=== PATIENT | female | born 1940 | race Caucasian/White ===

== ENCOUNTER 2021-02-15 16:21 | Inpatient (IN) | payer MEDICARE ==
[2021-02-15 16:59] LABS: #Basophils 0.1 thou/uL (0.0-0.2); #Eosinphils 0.1 thou/uL (0.0-0.7); #Lymphocytes 1.7 thou/uL (1.20-3.40); #Monocytes 0.6 thou/uL (0.11-0.59); #Neutrophils 7.9 thou/uL (1.40-6.50); %Basophils 0.8 % (0.0-1.0); %Eosinophils 1.1 % (0.0-10.0); %Lymphocytes 16.3 % (21.0-51.0); %Monocytes 5.8 % (0.0-10.0); %Neutrophils 76.1 % (42.0-75.0); Hemoglobin 14.4 g/dL (12.0-16.0); Mean Corpuscular HGB CONC 31.3 g/dL (32.0-36.0); Mean Corpuscular Hemoglobin 27.1 pg (27.0-31.0); Mean Corpuscular Volume 86.6 fL (78.0-98.0); Mean Platelet Volume 8.4 fL (7.4-10.4); Platelet Count 302 thou/uL (130-400); RBC Distribution Width 13.4 % (11.5-14.5); Red Blood Cell (RBC) Count 5.32 mill/uL (4.20-5.40); White Blood Cell (WBC) Count 10.4 thou/uL (4.8-10.8)
[2021-02-15 17:18] LABS: ALT (SGPT) 11 U/L (8-55); AST (SGOT) 14 U/L (5-34); Albumin 3.9 g/dL (3.4-4.8); Alkaline Phosphatase 70 U/L (40-110); Anion Gap 12 mmol/L (10-20); BUN (Urea Nitrogen) 19 mg/dL (9.8-20.1); Bilirubin, Total 0.4 mg/dL (0.2-1.2); Calc. Creatinine Clearance 0 mL/min (70-130); Calcium 9.3 mg/dL (7.8-10.44); Carbon Dioxide 24 mmol/L (23-31); Chloride 102 mmol/L (98-107); Globulin 3.6 g/dL (2.4-3.5); Glucose 146 mg/dL (83-110); Lipase 30 U/L (8-78); Potassium 4.4 mmol/L (3.5-5.1); Protein, Total 7.5 g/dL (5.8-8.1); Sodium 134 mmol/L (136-145)
[2021-02-15 17:40] LABS: CKMB 2.2 ng/mL (0-6.6)
[2021-02-15] MEDS ORDERED: Ondansetron PF 4 MG/2 ML Vial ONE (19:42)
[2021-02-15] MEDS ORDERED: Enoxaparin Sodium 100 MG/ML SYRINGE ONE (19:42)
[2021-02-15] MEDS ORDERED: Acetaminophen 500 MG TAB ONE (19:43)
[2021-02-15] MEDS ORDERED: Acetaminophen 325 MG TAB PO PRN (19:49)
[2021-02-15] MEDS ORDERED: Ondansetron PF 4 MG/2 ML Vial IVP PRN (19:49)
[2021-02-15] MEDS ORDERED: Nitroglycerin 0.4 MG TAB (25 Tab Bottle) SL PRN (19:49)
[2021-02-15] MEDS ORDERED: Ondansetron ODT 4 MG TAB PO PRN (19:49)
[2021-02-15] MEDS ORDERED: Dextrose 50% Abboject 50 ML SYRINGE SLOW IVP PRN (20:02)
[2021-02-15] MEDS ORDERED: Dextrose 5% in Water 1,000 ML IV PRN (20:02)
[2021-02-15] MEDS ORDERED: HumaLOG 300 UNITS/3 ML VIAL SC PRN ×2 (20:02)
[2021-02-15 20:22] LABS: Troponin I 0.569 ng/mL (< 0.028)
[2021-02-15 21:19] LABS: SARS-CoV-2 NAA Rapid Test Not Detected (NotDetected)
[2021-02-15 22:43] LABS: Bilirubin Negative (Negative); Blood, Urine Negative (Negative); Clarity Clear (Clear); Glucose, Urine (Dipstick) Greater than 1000 mg/dL (Negative); Ketone, Urine Negative (Negative); Leukocyte Negative Leu/uL (Negative); Nitrite Negative (Negative); Protein, Urine (Dipstick) Negative (Neg-Trace); Specific Gravity, Urine 1.035 (1.002-1.036); Urobilinogen Normal mg/dL (Less than 2); pH, Urine 5.5 (5.0-9.0)
[2021-02-16 01:15] LABS: Troponin I 0.717 ng/mL (< 0.028)
[2021-02-16 05:22] LABS: #Basophils 0.1 thou/uL (0.0-0.2); #Eosinphils 0.1 thou/uL (0.0-0.7); #Lymphocytes 2.8 thou/uL (1.20-3.40); #Monocytes 0.9 thou/uL (0.11-0.59); #Neutrophils 9.6 thou/uL (1.40-6.50); %Basophils 0.6 % (0.0-1.0); %Eosinophils 0.8 % (0.0-10.0); %Lymphocytes 20.5 % (21.0-51.0); %Monocytes 6.7 % (0.0-10.0); %Neutrophils 71.5 % (42.0-75.0); Hemoglobin 14.4 g/dL (12.0-16.0); Mean Corpuscular Hemoglobin 28.7 pg (27.0-31.0); Mean Platelet Volume 8.3 fL (7.4-10.4); Platelet Count 274 thou/uL (130-400); RBC Distribution Width 13.3 % (11.5-14.5); White Blood Cell (WBC) Count 13.4 thou/uL (4.8-10.8)
[2021-02-16 05:45] LABS: Anion Gap 12 mmol/L (10-20); BUN (Urea Nitrogen) 21 mg/dL (9.8-20.1); Calc. Creatinine Clearance 83 mL/min (70-130); Calcium 9.1 mg/dL (7.8-10.44); Carbon Dioxide 25 mmol/L (23-31); Chloride 104 mmol/L (98-107); Glucose 112 mg/dL (83-110); Potassium 4.2 mmol/L (3.5-5.1); Sodium 137 mmol/L (136-145)
[2021-02-16] MEDS ORDERED: Communication Order-Pharmacy FS SCH (08:45)
[2021-02-16] MEDS ORDERED: Clopidogrel Bisulfate 75 MG TAB ONE (08:49)
[2021-02-16] MEDS ORDERED: Aspirin Chewable 81 MG TAB ONE (08:49)
[2021-02-16] MEDS ORDERED: Iopamidol 370 76% 100 ML VIAL ONE (08:57)
[2021-02-16] MEDS ORDERED: Aspirin Chewable 81 MG TAB PO SCH (09:00)
[2021-02-16] MEDS ORDERED: Clopidogrel Bisulfate 75 MG TAB PO SCH (09:00)
[2021-02-16] MEDS ORDERED: Lidocaine 1% (PF) 30 ML VIAL ONE (09:00)
[2021-02-16] MEDS ORDERED: Losartan 25 MG TAB PO SCH (09:00)
[2021-02-16] MEDS ORDERED: Enoxaparin Sodium 100 MG/ML SYRINGE SC SCH (09:00)
[2021-02-16] MEDS ORDERED: Midazolam HCl 2 mg/2 ml Vial ONE (09:52)
[2021-02-16] MEDS ORDERED: Nitroglycerin 100MG/250ML BOT 0 ML ONE (10:05)
[2021-02-16] MEDS ORDERED: Nitroglycerin 50 MG/250 ML BOT 250 ML ONE (10:06)
[2021-02-16] MEDS ORDERED: Nitroglycerin 4.9 GM Bottle ONE (10:08)
[2021-02-16] MEDS ORDERED: Albumin 5% 500 ML ONE (10:22)
[2021-02-16] MEDS ORDERED: Dexamethasone 4 mg/ml Vial ONE (10:23)
[2021-02-16] MEDS ORDERED: Bupivacaine PF 0.5% 30 ML VIAL ONE (10:23)
[2021-02-16] MEDS ORDERED: Fentanyl 100 MCG/2 ML VIAL ONE (10:32)
[2021-02-16] MEDS ORDERED: Midazolam HCl 5 mg/5 ml Vial ONE (10:32)
[2021-02-16] MEDS ORDERED: Dexmedetomidine 200 MCG/2 ML VIAL ONE (10:33)
[2021-02-16] MEDS ORDERED: Heparin 10,000 UNITS/1 ML VIAL 30,000 UNITS in Sodium Chloride 0.9% 1,000 ML FS SCH (11:00)
[2021-02-16] MEDS ORDERED: Gentamicin 80 MG/2 ML VIAL ONE (11:33)
[2021-02-16] MEDS ORDERED: Clindamycin/D5W 900 mg/50 ml Premix Bag ONE (11:33)
[2021-02-16] MEDS ORDERED: Lidocaine 1% PF 5 ML VIAL ONE (11:38)
[2021-02-16] MEDS ORDERED: Potassium Chloride 60 MEQ/30 ML VIAL ONE (11:38)
[2021-02-16] MEDS ORDERED: Heparin 30,000 units/30 ml VIAL ONE (11:38)
[2021-02-16] MEDS ORDERED: Papaverine 60 MG/2 ML VIAL ONE (11:38)
[2021-02-16] MEDS ORDERED: PHENYLEPHRINE-NS 100 MCG/ML 10 ML SYRINGE ONE (11:38)
[2021-02-16] MEDS ORDERED: Heparin 5,000 UNITS/ML VIAL ONE (11:38)
[2021-02-16] MEDS ORDERED: Magnesium Sulfate 1 GM/2 ML VIAL ONE (11:38)
[2021-02-16] MEDS ORDERED: Vecuronium 10 MG VIAL ONE (11:38)
[2021-02-16] MEDS ORDERED: Norepinephrine 4 MG/4 ML VIAL ONE (11:38)
[2021-02-16] MEDS ORDERED: Thrombin 5000 UNITS/5 ML VIAL ONE (11:38)
[2021-02-16] MEDS ORDERED: Mannitol 12.5 GM/50 ML ONE (11:38)
[2021-02-16] MEDS ORDERED: Calcium Chloride 1 GM/10 ML Abboject SYRINGE ONE (11:38)
[2021-02-16] MEDS ORDERED: Cardioplegic Soln 1,000 ML BAG ONE (11:38)
[2021-02-16] MEDS ORDERED: Lidocaine 2% PF 100 mg/5 ml Syringe ONE (11:38)
[2021-02-16] MEDS ORDERED: Aminocaproic Acid 5 GM/20 ML VIAL ONE (11:38)
[2021-02-16] MEDS ORDERED: Nitroglycerin 50 MG/250 ML BOT ONE (11:38)
[2021-02-16] MEDS ORDERED: Dexamethasone 20 MG/5 ML VIAL ONE (11:38)
[2021-02-16] MEDS ORDERED: Protamine Sulfate 250 MG/25 ML VIAL ONE (11:38)
[2021-02-16] MEDS ORDERED: Ondansetron PF 4 MG/2 ML Vial ONE (11:38)
[2021-02-16] MEDS ORDERED: Glycopyrrolate 0.2 MG/ML 5 ML SYRINGE ONE (11:38)
[2021-02-16] MEDS ORDERED: EPINEPHrine 1 MG/ML AMP ONE (12:19)
[2021-02-16] MEDS ORDERED: D5 1/2 NS w/20 mEq KCL 1,000 ML ONE (15:24)
[2021-02-16] MEDS ORDERED: Post-Op Insulin Drip Protocol IVPB ONE (15:27)
[2021-02-16] MEDS ORDERED: niCARdipine 25 MG in Sodium Chloride 0.9% 250 ML 240 ML IVPB PRN (15:27)
[2021-02-16] MEDS ORDERED: traMADol HCl 50 MG TAB PO PRN ×2 (15:27)
[2021-02-16] MEDS ORDERED: Promethazine HCl 25 MG/ML VIAL IM PRN (15:27)
[2021-02-16] MEDS ORDERED: Potassium Chloride 20 MEQ/100 ML PREMIX BAG IVPB PRN (15:27)
[2021-02-16] MEDS ORDERED: Nitroglycerin 50 MG/250 ML BOT 250 ML IVPB PRN (15:27)
[2021-02-16] MEDS ORDERED: Fentanyl 100 MCG/2 ML VIAL SLOW IVP PRN ×2 (15:27)
[2021-02-16] MEDS ORDERED: Bisacodyl 10 MG SUPP PR PRN (15:27)
[2021-02-16] MEDS ORDERED: hydrALAZINE 20 MG/ML VIAL SLOW IVP PRN (15:27)
[2021-02-16] MEDS ORDERED: Ondansetron PF 4 MG/2 ML Vial IVP PRN (15:27)
[2021-02-16] MEDS ORDERED: Hetastarch 6% 500 ML 500 ML IVPB PRN (15:27)
[2021-02-16] MEDS ORDERED: Acetaminophen 325 MG TAB PO PRN (15:27)
[2021-02-16] MEDS ORDERED: Guaifenesin DM 100-10/5 ML UDCUP PO PRN (15:27)
[2021-02-16] MEDS ORDERED: Mag-Al 1200 mg/1200 mg/30 ML UDCUP PO PRN (15:27)
[2021-02-16] MEDS ORDERED: Morphine 2 MG/ML VIAL SLOW IVP PRN (15:27)
[2021-02-16] MEDS ORDERED: Bisacodyl 5 MG TAB PO PRN (15:27)
[2021-02-16] MEDS ORDERED: Gentamicin 80 MG/2 ML VIAL IVPB SCH (15:30)
[2021-02-16] MEDS ORDERED: Phenylephrine 40 MG/NS 250 ML 40 MG in Premix Bag 1 BAG IVPB PRN (15:39)
[2021-02-16] MEDS ORDERED: Dextrose 5% in Water 1,000 ML IV PRN (15:45)
[2021-02-16] MEDS ORDERED: HUMULIN R 100 UNITS in Sodium Chloride 0.9% 100 ML IVPB SCH (15:45)
[2021-02-16] MEDS ORDERED: Dextrose 50% Abboject 50 ML SYRINGE SLOW IVP PRN (15:45)
[2021-02-16] MEDS ORDERED: Magnesium 2 GM/50 ML 2 GM in Premix Bag 1 BAG IVPB SCH (15:45)
[2021-02-16] MEDS ORDERED: Vancomycin HCl 1.5 GM in Sodium Chloride 0.9% 250 ML 300 ML IVPB SCH ×2 (16:00→18:00)
[2021-02-16 16:10] LABS: Actual Bicarbonate (HCO3a) 21.1 mEq/L (22-28); Base Excess (BEa) -4.9 mEq/L (-2.0 to +3.0); CO2 Tension 42.7 mmHg (35.0-45.0); Calcium, Ionized (arterial) 1.16 mmol/L (1.12-1.30); Carboxyhemoglobin (COHb) 0.6 gm% (0.0-3.0); Hemoglobin (Hb) 12.6 g/dL (12.0-16.0); O2 Tension (PaO2), arterial 79.7 mmHg (> 70.0); Potassium - ABG Lab 3.78 mmol/L (3.70-5.30); Puncture Site Arterial Line; pH, Arterial 7.31 (7.35-7.45)
[2021-02-16 16:15] LABS: ALV-art Gradient 152.125 mmHg (0-20)
[2021-02-16] MEDS ORDERED: Gentamicin Sulfate 80 MG in Premix Bag 1 BAG IVPB SCH (16:15)
[2021-02-16 16:27] LABS: Hemoglobin 11.6 g/dL (12.0-16.0); Mean Corpuscular HGB CONC 32.2 g/dL (32.0-36.0); Mean Corpuscular Hemoglobin 28.3 pg (27.0-31.0); Mean Corpuscular Volume 87.7 fL (78.0-98.0); Mean Platelet Volume 8.2 fL (7.4-10.4); Platelet Count 252 thou/uL (130-400); RBC Distribution Width 13.2 % (11.5-14.5); Red Blood Cell (RBC) Count 4.09 mill/uL (4.20-5.40); White Blood Cell (WBC) Count 20.7 thou/uL (4.8-10.8)
[2021-02-16 16:38] LABS: INR-International Normal Ratio 1.4; PTT 31.6 sec (22.9-36.1); Prothrombin Time 17.1 sec (12.0-14.7)
[2021-02-16 16:41] LABS: Band 17 % (5-11); Lymphocytes 16 % (21-51); MDiff Complete? YES; Monocytes 3 % (0-10); Neutrophil 63 % (42-75); Platelet Morphology Comment Appears Adequate; RBC Morphology Normal; Reactive Lymphocytes 1 % (0-10)
[2021-02-16] MEDS ORDERED: Carvedilol 6.25 MG TAB PO SCH (17:00)
[2021-02-16 17:05] LABS: Anion Gap 10 mmol/L (10-20); BUN (Urea Nitrogen) 14 mg/dL (9.8-20.1); Calc. Creatinine Clearance 104 mL/min (70-130); Calcium 7.2 mg/dL (7.8-10.44); Carbon Dioxide 21 mmol/L (23-31); Chloride 112 mmol/L (98-107); Glucose 163 mg/dL (83-110); Potassium 3.6 mmol/L (3.5-5.1); Sodium 139 mmol/L (136-145)
[2021-02-16] MEDS: D5 1/2 NS w/20 mEq KCL 1,000 ML IV SCH (17:06)
[2021-02-16] MEDS: Ketorolac Tromethamine 30 MG/ML VIAL IVP SCH ×2 (17:23→23:22)
[2021-02-16] MEDS: Insulin Regular 300 UNITS/3 ML VIAL SC PRN ×2 (17:26→20:39)
[2021-02-16] MEDS: Vancomycin 1.5 GRAM/300 ML BAG 1.5 GM in Premix Bag 1 BAG IVPB SCH (18:04)
[2021-02-16] MEDS ORDERED: Norepinephrine 8 MG/0.9% NS 250 ML IVPB SCH (18:30)
[2021-02-16 18:59] LABS: Actual Bicarbonate (HCO3a) 21.7 mEq/L (22-28); Base Excess (BEa) -4.7 mEq/L (-2.0 to +3.0); CO2 Tension 45.3 mmHg (35.0-45.0); Calcium, Ionized (arterial) 1.06 mmol/L (1.12-1.30); Carboxyhemoglobin (COHb) 0.8 gm% (0.0-3.0); Hemoglobin (Hb) 12.2 g/dL (12.0-16.0); O2 Tension (PaO2), arterial 108.1 mmHg (> 70.0); Potassium - ABG Lab 4.63 mmol/L (3.70-5.30)
[2021-02-16 19:05] LABS: ALV-art Gradient 120.475 mmHg (0-20); Puncture Site Arterial Line
[2021-02-16] MEDS: Clindamycin/D5W 900 MG in Premix Bag 1 BAG IVPB SCH (20:38)
[2021-02-16] MEDS ORDERED: Famotidine/PF 20 mg/2ml Vial SLOW IVP SCH (21:00)
[2021-02-16 21:29] LABS: Potassium 4.5 mmol/L (3.5-5.1)
[2021-02-16] MEDS ORDERED: Clindamycin/D5W 900 MG in Premix Bag 1 BAG IVPB SCH (22:00)
[2021-02-17] MEDS: Clindamycin/D5W 900 MG in Premix Bag 1 BAG IVPB SCH ×3 (01:22→13:39)
[2021-02-17 04:40] LABS: #Lymphocytes 0.8 thou/uL (1.20-3.40); #Monocytes 0.8 thou/uL (0.11-0.59); #Neutrophils 11.2 thou/uL (1.40-6.50); %Basophils 0.1 % (0.0-1.0); %Eosinophils 0.1 % (0.0-10.0); %Monocytes 5.9 % (0.0-10.0); Hemoglobin 9.8 g/dL (12.0-16.0); Mean Corpuscular HGB CONC 32.5 g/dL (32.0-36.0); Mean Corpuscular Hemoglobin 28.8 pg (27.0-31.0); Mean Corpuscular Volume 88.5 fL (78.0-98.0); Mean Platelet Volume 8.8 fL (7.4-10.4); Platelet Count 201 thou/uL (130-400); RBC Distribution Width 13.5 % (11.5-14.5); Red Blood Cell (RBC) Count 3.39 mill/uL (4.20-5.40); White Blood Cell (WBC) Count 12.7 thou/uL (4.8-10.8)
[2021-02-17] MEDS ORDERED: Norepinephrine 8 MG/0.9% NS 250 ML IVPB SCH (05:00)
[2021-02-17 05:04] LABS: Hemoglobin A1c 7.2 % (4.0-6.0)
[2021-02-17 05:07] LABS: Anion Gap 11 mmol/L (10-20); BUN (Urea Nitrogen) 17 mg/dL (9.8-20.1); Calc. Creatinine Clearance 94 mL/min (70-130); Calcium 7.5 mg/dL (7.8-10.44); Carbon Dioxide 20 mmol/L (23-31); Cardiac Risk 3.5 (Less than 4.5); Chloride 111 mmol/L (98-107); Cholesterol 83 mg/dl (< 200 Desired); Glucose 161 mg/dL (83-110); HDL Cholesterol 24 mg/dL (>60 Neg Risk); LDL Cholesterol, Calculated 48 mg/dL; Potassium 4.3 mmol/L (3.5-5.1); Sodium 138 mmol/L (136-145); Triglycerides 57 mg/dL (Less than 150)
[2021-02-17] MEDS: Insulin Regular 300 UNITS/3 ML VIAL SC PRN (05:07)
[2021-02-17] MEDS: Ketorolac Tromethamine 30 MG/ML VIAL IVP SCH ×3 (06:01→17:05)
[2021-02-17] MEDS: Vancomycin 1.5 GRAM/300 ML BAG 1.5 GM in Premix Bag 1 BAG IVPB SCH (06:58)
[2021-02-17] MEDS ORDERED: Dextrose 5% in Water 1,000 ML IV PRN (07:55)
[2021-02-17] MEDS: Aspirin 325 MG TAB PO SCH (09:46)
[2021-02-17] MEDS: Magnesium 2 GM/50 ML 2 GM in Premix Bag 1 BAG IVPB SCH (09:46)
[2021-02-17] MEDS: HumaLOG 300 UNITS/3 ML VIAL SC PRN (17:06)
[2021-02-17] MEDS: D5 1/2 NS w/20 mEq KCL 1,000 ML IV SCH (17:45)
[2021-02-17] MEDS: Atorvastatin Calcium 40 MG TAB PO SCH (20:15)
[2021-02-18] MEDS: Ketorolac Tromethamine 30 MG/ML VIAL IVP SCH ×2 (00:49→05:55)
[2021-02-18 04:47] LABS: #Lymphocytes 1.3 thou/uL (1.20-3.40); #Monocytes 1.2 thou/uL (0.11-0.59); #Neutrophils 9.8 thou/uL (1.40-6.50); %Basophils 0.2 % (0.0-1.0); %Eosinophils 0.1 % (0.0-10.0); %Lymphocytes 10.5 % (21.0-51.0); %Monocytes 9.5 % (0.0-10.0); %Neutrophils 79.7 % (42.0-75.0); Hemoglobin 8.6 g/dL (12.0-16.0); Mean Corpuscular HGB CONC 32.5 g/dL (32.0-36.0); Mean Corpuscular Hemoglobin 28.5 pg (27.0-31.0); Mean Corpuscular Volume 87.7 fL (78.0-98.0); Mean Platelet Volume 8.4 fL (7.4-10.4); Platelet Count 183 thou/uL (130-400); RBC Distribution Width 13.5 % (11.5-14.5); Red Blood Cell (RBC) Count 3.01 mill/uL (4.20-5.40); White Blood Cell (WBC) Count 12.3 thou/uL (4.8-10.8)
[2021-02-18 05:07] LABS: Anion Gap 12 mmol/L (10-20); BUN (Urea Nitrogen) 30 mg/dL (9.8-20.1); Calc. Creatinine Clearance 71 mL/min (70-130); Calcium 7.9 mg/dL (7.8-10.44); Carbon Dioxide 19 mmol/L (23-31); Chloride 111 mmol/L (98-107); Glucose 168 mg/dL (83-110); Potassium 4.2 mmol/L (3.5-5.1); Sodium 138 mmol/L (136-145)
[2021-02-18 07:53] LABS: Glucose 165 mg/dL (83-110)
[2021-02-18] MEDS: Magnesium 2 GM/50 ML 2 GM in Premix Bag 1 BAG IVPB SCH (09:10)
[2021-02-18] MEDS: Aspirin 325 MG TAB PO SCH (09:11)
[2021-02-18] MEDS: metFORMIN 500 MG TAB PO SCH (09:11)
[2021-02-18] MEDS ORDERED: Furosemide 40 MG TAB PO SCH (09:45)
[2021-02-18] MEDS ORDERED: Metoprolol Tartrate 5 MG/5 ML VIAL IVP SCH ×3 (13:24→14:51)
[2021-02-18] MEDS: Carvedilol 3.125 MG TAB PO SCH (17:02)
[2021-02-18] MEDS: Diltiazem 125 MG in Sodium Chloride 0.9% 100 ML IVPB SCH (17:33)
[2021-02-18] MEDS: Atorvastatin Calcium 40 MG TAB PO SCH (20:11)
[2021-02-18 21:44] LABS: Glucose 178 mg/dL (83-110)
[2021-02-19 04:58] LABS: #Lymphocytes 1.3 thou/uL (1.20-3.40); #Monocytes 1.1 thou/uL (0.11-0.59); %Basophils 0.1 % (0.0-1.0); %Eosinophils 0.1 % (0.0-10.0); %Lymphocytes 9.8 % (21.0-51.0); %Monocytes 7.9 % (0.0-10.0); %Neutrophils 82.2 % (42.0-75.0); Hemoglobin 8.8 g/dL (12.0-16.0); Mean Corpuscular HGB CONC 31.8 g/dL (32.0-36.0); Mean Corpuscular Volume 88.1 fL (78.0-98.0); Mean Platelet Volume 9.3 fL (7.4-10.4); Platelet Count 197 thou/uL (130-400); RBC Distribution Width 13.7 % (11.5-14.5); Red Blood Cell (RBC) Count 3.13 mill/uL (4.20-5.40); White Blood Cell (WBC) Count 13.4 thou/uL (4.8-10.8)
[2021-02-19 05:15] LABS: Anion Gap 17 mmol/L (10-20); BUN (Urea Nitrogen) 42 mg/dL (9.8-20.1); Calc. Creatinine Clearance 78 mL/min (70-130); Calcium 8.2 mg/dL (7.8-10.44); Carbon Dioxide 18 mmol/L (23-31); Chloride 112 mmol/L (98-107); Glucose 172 mg/dL (83-110); Potassium 4.5 mmol/L (3.5-5.1); Sodium 142 mmol/L (136-145)
[2021-02-19] MEDS: Diltiazem 125 MG in Sodium Chloride 0.9% 100 ML IVPB SCH (08:11)
[2021-02-19] MEDS: Carvedilol 3.125 MG TAB PO SCH ×2 (08:15→18:08)
[2021-02-19] MEDS: metFORMIN 500 MG TAB PO SCH (08:15)
[2021-02-19] MEDS: Furosemide 40 MG TAB PO SCH (08:15)
[2021-02-19] MEDS: Aspirin 325 MG TAB PO SCH (08:15)
[2021-02-19] MEDS: HumaLOG 300 UNITS/3 ML VIAL SC PRN ×3 (11:37→23:13)
[2021-02-19] MEDS ORDERED: Diltiazem 125 MG in Sodium Chloride 0.9% 100 ML IVPB SCH (13:45)
[2021-02-19 17:27] LABS: Glucose 290 mg/dL (83-110)
[2021-02-19 21:09] LABS: Glucose 324 mg/dL (83-110)
[2021-02-19] MEDS: Atorvastatin Calcium 40 MG TAB PO SCH (22:29)
[2021-02-19] MEDS ORDERED: Dextrose 5% in Water 1,000 ML IV PRN (22:57)
[2021-02-19] MEDS ORDERED: Dextrose 50% Abboject 50 ML SYRINGE SLOW IVP PRN (22:57)
[2021-02-20] MEDS ORDERED: ALPRAZolam 0.25 MG TAB PO SCH (00:45)
[2021-02-20 05:06] LABS: #Lymphocytes 1.3 thou/uL (1.20-3.40); #Monocytes 1.4 thou/uL (0.11-0.59); #Neutrophils 12.7 thou/uL (1.40-6.50); %Basophils 0.1 % (0.0-1.0); %Eosinophils 0.2 % (0.0-10.0); %Lymphocytes 8.4 % (21.0-51.0); %Monocytes 8.9 % (0.0-10.0); %Neutrophils 82.4 % (42.0-75.0); Hemoglobin 8.7 g/dL (12.0-16.0); Mean Corpuscular HGB CONC 31.7 g/dL (32.0-36.0); Mean Corpuscular Hemoglobin 27.8 pg (27.0-31.0); Mean Corpuscular Volume 87.5 fL (78.0-98.0); Mean Platelet Volume 9.5 fL (7.4-10.4); Platelet Count 213 thou/uL (130-400); RBC Distribution Width 13.6 % (11.5-14.5); Red Blood Cell (RBC) Count 3.14 mill/uL (4.20-5.40); White Blood Cell (WBC) Count 15.4 thou/uL (4.8-10.8)
[2021-02-20 05:24] LABS: Anion Gap 14 mmol/L (10-20); BUN (Urea Nitrogen) 47 mg/dL (9.8-20.1); Calc. Creatinine Clearance 80 mL/min (70-130); Calcium 8.2 mg/dL (7.8-10.44); Carbon Dioxide 22 mmol/L (23-31); Chloride 112 mmol/L (98-107); Glucose 212 mg/dL (83-110); Sodium 144 mmol/L (136-145)
[2021-02-20] MEDS: HumaLOG 300 UNITS/3 ML VIAL SC PRN ×4 (06:20→21:12)
[2021-02-20] MEDS: Aspirin 325 MG TAB PO SCH (08:21)
[2021-02-20] MEDS: Furosemide 40 MG TAB PO SCH (08:21)
[2021-02-20] MEDS: Carvedilol 3.125 MG TAB PO SCH (08:21)
[2021-02-20] MEDS ORDERED: Ondansetron PF 4 MG/2 ML Vial IVP PRN (08:36)
[2021-02-20] MEDS ORDERED: Lantus 1000 UNITS/10 ML VIAL SC SCH (09:00)
[2021-02-20] MEDS: ALPRAZolam 0.25 MG TAB PO SCH ×2 (09:26→21:10)
[2021-02-20] MEDS: Carvedilol 6.25 MG TAB PO SCH (16:05)
[2021-02-20] MEDS ORDERED: metFORMIN 500 MG TAB PO SCH (17:00)
[2021-02-20] MEDS: Atorvastatin Calcium 40 MG TAB PO SCH (21:10)
[2021-02-21 04:48] LABS: #Lymphocytes 1.6 thou/uL (1.20-3.40); #Monocytes 1.3 thou/uL (0.11-0.59); #Neutrophils 9.1 thou/uL (1.40-6.50); %Basophils 0.2 % (0.0-1.0); %Eosinophils 0.3 % (0.0-10.0); %Lymphocytes 13.4 % (21.0-51.0); %Monocytes 10.4 % (0.0-10.0); %Neutrophils 75.7 % (42.0-75.0); Hemoglobin 8.2 g/dL (12.0-16.0); Mean Corpuscular Hemoglobin 29.2 pg (27.0-31.0); Mean Corpuscular Volume 88.4 fL (78.0-98.0); Mean Platelet Volume 8.6 fL (7.4-10.4); Platelet Count 259 thou/uL (130-400); RBC Distribution Width 13.5 % (11.5-14.5); White Blood Cell (WBC) Count 12.1 thou/uL (4.8-10.8)
[2021-02-21 05:08] LABS: Anion Gap 12 mmol/L (10-20); BUN (Urea Nitrogen) 48 mg/dL (9.8-20.1); Calc. Creatinine Clearance 74 mL/min (70-130); Calcium 8.8 mg/dL (7.8-10.44); Carbon Dioxide 27 mmol/L (23-31); Chloride 114 mmol/L (98-107); Glucose 237 mg/dL (83-110); Magnesium 2.8 mg/dL (1.6-2.6); Potassium 4.1 mmol/L (3.5-5.1); Sodium 149 mmol/L (136-145)
[2021-02-21] MEDS: HumaLOG 300 UNITS/3 ML VIAL SC PRN ×4 (06:08→20:46)
[2021-02-21] MEDS ORDERED: Furosemide 40 MG/4 ML VIAL SLOW IVP SCH (08:15)
[2021-02-21] MEDS: Carvedilol 6.25 MG TAB PO SCH ×3 (09:15→16:59)
[2021-02-21] MEDS: Furosemide 40 MG TAB PO SCH (09:15)
[2021-02-21] MEDS: Lantus 1000 UNITS/10 ML VIAL SC SCH ×2 (09:16→20:00)
[2021-02-21] MEDS: Aspirin 325 MG TAB PO SCH (09:17)
[2021-02-21] MEDS: Losartan 25 MG TAB PO SCH (09:17)
[2021-02-21] MEDS: Empagliflozin 25 MG TAB PO SCH (09:17)
[2021-02-21] MEDS ORDERED: Amiodarone 150 MG, Admixture Fee 1 EACH in Dextrose 5% in Water 100 ML IVPB SCH (18:45)
[2021-02-21] MEDS: Atorvastatin Calcium 40 MG TAB PO SCH (20:00)
[2021-02-21] MEDS: Amiodarone 450 MG, Admixture Fee 1 EACH in Dextrose 5% in Water 250 ML IVPB SCH (20:09)
[2021-02-22 04:58] LABS: #Eosinphils 0.1 thou/uL (0.0-0.7); #Lymphocytes 2.2 thou/uL (1.20-3.40); #Monocytes 1.2 thou/uL (0.11-0.59); #Neutrophils 8.6 thou/uL (1.40-6.50); %Basophils 0.3 % (0.0-1.0); %Eosinophils 0.9 % (0.0-10.0); %Lymphocytes 18.3 % (21.0-51.0); %Monocytes 10.1 % (0.0-10.0); %Neutrophils 70.4 % (42.0-75.0); Hemoglobin 8.6 g/dL (12.0-16.0); Mean Corpuscular HGB CONC 30.7 g/dL (32.0-36.0); Mean Corpuscular Hemoglobin 27.4 pg (27.0-31.0); Mean Corpuscular Volume 89.1 fL (78.0-98.0); Mean Platelet Volume 8.8 fL (7.4-10.4); Platelet Count 288 thou/uL (130-400); RBC Distribution Width 13.6 % (11.5-14.5); Red Blood Cell (RBC) Count 3.13 mill/uL (4.20-5.40); White Blood Cell (WBC) Count 12.3 thou/uL (4.8-10.8)
[2021-02-22 05:14] LABS: Anion Gap 11 mmol/L (10-20); BUN (Urea Nitrogen) 42 mg/dL (9.8-20.1); Calc. Creatinine Clearance 78 mL/min (70-130); Calcium 8.8 mg/dL (7.8-10.44); Carbon Dioxide 29 mmol/L (23-31); Chloride 114 mmol/L (98-107); Glucose 211 mg/dL (83-110); Magnesium 2.6 mg/dL (1.6-2.6); Potassium 4.4 mmol/L (3.5-5.1); Sodium 150 mmol/L (136-145)
[2021-02-22] MEDS: Amiodarone 450 MG, Admixture Fee 1 EACH in Dextrose 5% in Water 250 ML IVPB SCH (05:43)
[2021-02-22] MEDS: HumaLOG 300 UNITS/3 ML VIAL SC PRN ×3 (05:56→22:29)
[2021-02-22] MEDS ORDERED: PROPOFOL 200 MG/20 ML VIAL ONE (09:54)
[2021-02-22] MEDS: Losartan 25 MG TAB PO SCH (10:56)
[2021-02-22] MEDS: Apixaban 5 MG TAB PO SCH ×2 (10:56→20:45)
[2021-02-22] MEDS: Furosemide 40 MG TAB PO SCH (10:57)
[2021-02-22] MEDS: Empagliflozin 25 MG TAB PO SCH (10:57)
[2021-02-22] MEDS: Lantus 1000 UNITS/10 ML VIAL SC SCH ×2 (10:57→20:49)
[2021-02-22] MEDS ORDERED: Digoxin 0.5 MG/2 ML AMP ONE ×2 (18:29→20:42)
[2021-02-22] MEDS: Atorvastatin Calcium 40 MG TAB PO SCH (20:45)
[2021-02-22] MEDS ORDERED: Amiodarone 200 MG TAB PO SCH (21:00)
[2021-02-23 05:00] LABS: #Basophils 0.1 thou/uL (0.0-0.2); #Eosinphils 0.2 thou/uL (0.0-0.7); #Lymphocytes 3.2 thou/uL (1.20-3.40); #Monocytes 1.3 thou/uL (0.11-0.59); %Basophils 0.5 % (0.0-1.0); %Eosinophils 1.3 % (0.0-10.0); %Lymphocytes 21.5 % (21.0-51.0); %Neutrophils 67.7 % (42.0-75.0); Hemoglobin 8.8 g/dL (12.0-16.0); Mean Corpuscular Hemoglobin 29.2 pg (27.0-31.0); Mean Corpuscular Volume 88.5 fL (78.0-98.0); Mean Platelet Volume 8.9 fL (7.4-10.4); Platelet Count 328 thou/uL (130-400); RBC Distribution Width 13.7 % (11.5-14.5); Red Blood Cell (RBC) Count 3.02 mill/uL (4.20-5.40); White Blood Cell (WBC) Count 14.8 thou/uL (4.8-10.8)
[2021-02-23 05:25] LABS: Anion Gap 9 mmol/L (10-20); BUN (Urea Nitrogen) 33 mg/dL (9.8-20.1); Calc. Creatinine Clearance 70 mL/min (70-130); Calcium 8.5 mg/dL (7.8-10.44); Carbon Dioxide 32 mmol/L (23-31); Chloride 109 mmol/L (98-107); Glucose 170 mg/dL (83-110); Magnesium 2.2 mg/dL (1.6-2.6); Potassium 4.1 mmol/L (3.5-5.1); Sodium 146 mmol/L (136-145)
[2021-02-23 08:21] LABS: Glucose 159 mg/dL (83-110)
[2021-02-23] MEDS: Digoxin 0.125 MG TAB PO SCH (08:53)
[2021-02-23] MEDS: Amiodarone 200 MG TAB PO SCH ×3 (08:53→21:37)
[2021-02-23] MEDS: Apixaban 5 MG TAB PO SCH ×2 (08:53→21:32)
[2021-02-23] MEDS: Aspirin 81 mg Enteric Coated Tablet PO SCH (08:53)
[2021-02-23] MEDS: Furosemide 40 MG TAB PO SCH (08:56)
[2021-02-23] MEDS: Losartan 25 MG TAB PO SCH (08:56)
[2021-02-23] MEDS: Empagliflozin 25 MG TAB PO SCH (08:57)
[2021-02-23] MEDS: Lantus 1000 UNITS/10 ML VIAL SC SCH ×2 (09:10→21:37)
[2021-02-23 12:56] VITALS: BMI 35.2
[2021-02-23] MEDS: Nystatin Powder 15 GM BOT TOP PRN (17:49)
[2021-02-23] MEDS ORDERED: Digoxin 0.5 MG/2 ML AMP SLOW IVP SCH (18:00)
[2021-02-23] MEDS: Atorvastatin Calcium 40 MG TAB PO SCH (21:31)
[2021-02-24 04:50] LABS: #Basophils 0.1 thou/uL (0.0-0.2); #Eosinphils 0.3 thou/uL (0.0-0.7); #Lymphocytes 2.4 thou/uL (1.20-3.40); #Monocytes 1.2 thou/uL (0.11-0.59); #Neutrophils 12.1 thou/uL (1.40-6.50); %Basophils 0.3 % (0.0-1.0); %Eosinophils 1.9 % (0.0-10.0); %Lymphocytes 15.1 % (21.0-51.0); %Monocytes 7.4 % (0.0-10.0); %Neutrophils 75.3 % (42.0-75.0); Hemoglobin 9.2 g/dL (12.0-16.0); Mean Corpuscular HGB CONC 32.9 g/dL (32.0-36.0); Mean Corpuscular Hemoglobin 28.9 pg (27.0-31.0); Mean Platelet Volume 8.6 fL (7.4-10.4); Platelet Count 376 thou/uL (130-400); RBC Distribution Width 13.7 % (11.5-14.5); Red Blood Cell (RBC) Count 3.17 mill/uL (4.20-5.40); White Blood Cell (WBC) Count 16.1 thou/uL (4.8-10.8)
[2021-02-24 05:19] LABS: Anion Gap 10 mmol/L (10-20); BUN (Urea Nitrogen) 30 mg/dL (9.8-20.1); Calc. Creatinine Clearance 69 mL/min (70-130); Calcium 8.2 mg/dL (7.8-10.44); Carbon Dioxide 31 mmol/L (23-31); Chloride 105 mmol/L (98-107); Glucose 196 mg/dL (83-110); Magnesium 2.3 mg/dL (1.6-2.6); Potassium 4.1 mmol/L (3.5-5.1); Sodium 142 mmol/L (136-145)
[2021-02-24] MEDS ORDERED: PROPOFOL 200 MG/20 ML VIAL ONE (07:58)
[2021-02-24] MEDS: Lantus 1000 UNITS/10 ML VIAL SC SCH ×2 (08:51→21:03)
[2021-02-24] MEDS: Apixaban 5 MG TAB PO SCH ×2 (08:59→21:03)
[2021-02-24] MEDS: Furosemide 40 MG TAB PO SCH (08:59)
[2021-02-24] MEDS: Amiodarone 200 MG TAB PO SCH ×3 (09:00→21:04)
[2021-02-24] MEDS: Aspirin 81 mg Enteric Coated Tablet PO SCH (09:00)
[2021-02-24] MEDS: Digoxin 0.125 MG TAB PO SCH (09:00)
[2021-02-24] MEDS: Losartan 25 MG TAB PO SCH (09:00)
[2021-02-24] MEDS: Empagliflozin 25 MG TAB PO SCH (09:00)
[2021-02-24] MEDS: HumaLOG 300 UNITS/3 ML VIAL SC PRN ×2 (11:43→21:02)
[2021-02-24 11:56] LABS: Glucose 206 mg/dL (83-110)
[2021-02-24] MEDS: Nystatin Powder 15 GM BOT TOP PRN (15:29)
[2021-02-24] MEDS: Atorvastatin Calcium 40 MG TAB PO SCH (21:03)
[2021-02-25 04:59] LABS: #Eosinphils 0.3 thou/uL (0.0-0.7); #Lymphocytes 1.8 thou/uL (1.20-3.40); #Monocytes 1.1 thou/uL (0.11-0.59); #Neutrophils 10.4 thou/uL (1.40-6.50); %Basophils 0.2 % (0.0-1.0); %Eosinophils 1.9 % (0.0-10.0); %Lymphocytes 13.1 % (21.0-51.0); %Neutrophils 76.8 % (42.0-75.0); Hemoglobin 8.7 g/dL (12.0-16.0); Mean Corpuscular HGB CONC 32.8 g/dL (32.0-36.0); Mean Corpuscular Hemoglobin 28.9 pg (27.0-31.0); Mean Corpuscular Volume 88.2 fL (78.0-98.0); Mean Platelet Volume 8.5 fL (7.4-10.4); Platelet Count 371 thou/uL (130-400); RBC Distribution Width 13.8 % (11.5-14.5); Red Blood Cell (RBC) Count 3.01 mill/uL (4.20-5.40); White Blood Cell (WBC) Count 13.6 thou/uL (4.8-10.8)
[2021-02-25 05:15] LABS: Anion Gap 10 mmol/L (10-20); BUN (Urea Nitrogen) 32 mg/dL (9.8-20.1); Calc. Creatinine Clearance 62 mL/min (70-130); Calcium 8.1 mg/dL (7.8-10.44); Carbon Dioxide 31 mmol/L (23-31); Chloride 100 mmol/L (98-107); Glucose 155 mg/dL (83-110); Magnesium 2.4 mg/dL (1.6-2.6); Potassium 3.9 mmol/L (3.5-5.1); Sodium 137 mmol/L (136-145)
[2021-02-25 07:48] LABS: Glucose 154 mg/dL (83-110)
[2021-02-25] MEDS: Digoxin 0.125 MG TAB PO SCH (09:04)
[2021-02-25] MEDS: Lantus 1000 UNITS/10 ML VIAL SC SCH ×2 (09:05→18:59)
[2021-02-25] MEDS: Aspirin 81 mg Enteric Coated Tablet PO SCH (09:07)
[2021-02-25] MEDS: Apixaban 5 MG TAB PO SCH ×2 (09:07→18:59)
[2021-02-25] MEDS: Losartan 25 MG TAB PO SCH (09:07)
[2021-02-25] MEDS: Empagliflozin 25 MG TAB PO SCH (09:07)
[2021-02-25] MEDS: Furosemide 40 MG TAB PO SCH (09:07)
[2021-02-25] MEDS: Amiodarone 200 MG TAB PO SCH ×3 (09:07→18:59)
[2021-02-25 12:16] LABS: Glucose 213 mg/dL (83-110)
[2021-02-25 15:03] VITALS: BP 130/59; TEMP 97.8
[2021-02-25] MEDS: Atorvastatin Calcium 40 MG TAB PO SCH (18:59)
== END 2021-02-25 20:55 | DRG 234 ==
LOC: ERS 16:21 → ERHOLD 18:40 → SURG A 02-16 16:39 → CCU 02-16 16:45 → 2NO 02-17 17:41
PROVIDERS: ADMIT Internal Medicine; ATTEND Internal Medicine
PROC: 021209W Bypass Coronary Artery, Three Arteries from Aorta with Autologous Venous Tissue, Open Approach (ICD-10-PCS; principal; 2021-02-16)
PROC: 4A023N7 Measurement of Cardiac Sampling and Pressure, Left Heart, Percutaneous Approach (ICD-10-PCS; 2021-02-16)
PROC: 02100Z9 Bypass Coronary Artery, One Artery from Left Internal Mammary, Open Approach (ICD-10-PCS; 2021-02-16)
PROC: 06BQ4ZZ Excision of Left Saphenous Vein, Percutaneous Endoscopic Approach (ICD-10-PCS; 2021-02-16)
PROC: B2111ZZ Fluoroscopy of Multiple Coronary Arteries using Low Osmolar Contrast (ICD-10-PCS; 2021-02-16)
PROC: B2151ZZ Fluoroscopy of Left Heart using Low Osmolar Contrast (ICD-10-PCS; 2021-02-16)
PROC: 5A1221Z Performance of Cardiac Output, Continuous (ICD-10-PCS; 2021-02-16)
PROC: 0D9670Z Drainage of Stomach with Drainage Device, Via Natural or Artificial Opening (ICD-10-PCS; 2021-02-16)
PROC: 3E043XZ Introduction of Vasopressor into Central Vein, Percutaneous Approach (ICD-10-PCS; 2021-02-17)
PROC: 5A2204Z Restoration of Cardiac Rhythm, Single (ICD-10-PCS; 2021-02-22)
PROC: 5A2204Z Restoration of Cardiac Rhythm, Single (ICD-10-PCS; 2021-02-24)
DX: I21.4 Non-ST elevation (NSTEMI) myocardial infarction (principal); E87.1 Hypo-osmolality and hyponatremia; E87.0 Hyperosmolality and hypernatremia; I42.9 Cardiomyopathy, unspecified; Z20.822 Contact with and (suspected) exposure to COVID-19; I10 Essential (primary) hypertension; E66.9 Obesity, unspecified; E78.5 Hyperlipidemia, unspecified; E11.65 Type 2 diabetes mellitus with hyperglycemia; F41.9 Anxiety disorder, unspecified; I25.110 Atherosclerotic heart disease of native coronary artery with unstable angina pectoris; R50.9 Fever, unspecified; R13.10 Dysphagia, unspecified; I48.0 Paroxysmal atrial fibrillation; Z90.49 Acquired absence of other specified parts of digestive tract; Z68.25 Body mass index [BMI] 25.0-25.9, adult; I25.2 Old myocardial infarction; Z95.5 Presence of coronary angioplasty implant and graft; Z79.899 Other long term (current) drug therapy; Z79.84 Long term (current) use of oral hypoglycemic drugs; Z79.02 Long term (current) use of antithrombotics/antiplatelets
CPT/HCPCS: 0240U; 36415; 36416; 36430; 71045; 80048; 80053; 80061; 81003; 82553; 82805; 82947; 83036; 83690; 83735; 83880; 84484; 85025; 85610; 85730; 86850; 86900; 86901; 87040; 87086; 92960; 93005; 93010; 93458; 94002; 96365; 96372; 96375; 99152; J0171; J0282; J1100; J1160; J1580; J1644; J1650; J1815; J1885; J1956; J2001; J2150; J2250; J2270; J2405; J2440; J2704; J2720; J3010; J3370; J3475; J3480; J3490; J7070; P9045; Q9967; S0017; S0020; S0028